=== PATIENT | male | born 1950 | race African-American/Black ===

== ENCOUNTER 2021-11-28 13:15 | Outpatient (CLI) | payer OTHER | END 2021-11-28 13:16 | disposition home or self-care (01) | LOC: CSHCT 13:15 | PROVIDERS: ATTEND Neurological Surgery | DX: S06.6X9D Traumatic subarachnoid hemorrhage with loss of consciousness of unspecified duration, subsequent encounter (principal) | CPT/HCPCS: 70450 ==

== ENCOUNTER 2022-02-22 01:31 | Emergency (ER) | payer OTHER, MEDICAID | END 2022-02-22 06:40 | disposition home or self-care (01) | LOC: CSHERS 01:31 | DX: S09.90XA Unspecified injury of head, initial encounter (principal); I10 Essential (primary) hypertension; Z79.899 Other long term (current) drug therapy; W17.89XA Other fall from one level to another, initial encounter | CPT/HCPCS: 70450 ==